=== PATIENT | female | born 1975 | race Caucasian/White ===

== ENCOUNTER 2017-05-05 10:53 | Emergency (ER) | payer MEDICAID ==
[2015-12-06 15:22] VITALS: BMI 26.4
[~2017-05-05 10:53] MED LIST: CALCIUM CA500 MG/51 PO; CENTRUM COMPLE1 EACH PO; FERROUS SULFAT325 MG PO; KLOR-CON 1010 MEQ PO; LOESTRIN PO; MAG-OX 400 MG400 MG PO; NORCO 10/325 TA1 TA1 PO; REQUIP1 MG PO; SPRINTEC1 TAB PO; TRAZODONE HCL50 MG PO; VALIUM5 MG PO; ZANTAC300 MG PO
[2017-05-05 11:19] LABS: BASOPHILS 0.5 % (0-2); EOSINOPHILS 1.4 % (0-7); HEMATOCRIT 41.8 % (36.0-48.0); HEMOGLOBIN 13.8 g/dL (12-16); LYMPHOCYTES 46.2 % (15-50); MCH 30.1 pg (26.0-34.0); MCV 91.1 fL (80.0-100.0); MEAN PLATELET VOLUME 10.3 fL (7.4-10.4); NEUTROPHILS 41.9 % (40-80); PLATELET COUNT 221 10x3/uL (130-400); RBC 4.59 10x6/uL (4.00-5.40); RDW 14.2 % (11.5-14.5); WBC 3.7 10x3/uL (4.8-10.8)
[2017-05-05 11:35] LABS: ALBUMIN 3.7 g/dL (3.4-5.0); ANION GAP 11.7 mmol/L (8-16); BILIRUBIN - TOTAL 0.7 mg/dL (0.2-1.3); CARBON DIOXIDE 27.3 mmol/L (21.0-32.0); CREATININE - SERUM 0.9 mg/dL (0.6-1.3); PROTEIN - SERUM 7.6 g/dL (6.4-8.2)
[2017-05-05 12:04] LABS: APPEARANCE CLEAR (CLEAR); BILIRUBIN NEGATIVE (NEGATIVE); COLOR YELLOW (YELLOW); GLUCOSE NEGATIVE (NEGATIVE); KETONE NEGATIVE (NEGATIVE); LEUKOCYTE ESTERASE NEGATIVE (NEGATIVE); NITRITE NEGATIVE (NEGATIVE); PROTEIN NEGATIVE (NEGATIVE); UROBILINOGEN NORMAL (NORMAL)
== END 2017-05-05 14:28 | disposition home or self-care (01) ==
LOC: D.ER 10:53
PROVIDERS: Emergency Medicine
DX: R10.11 Right upper quadrant pain (principal); R11.2 Nausea with vomiting, unspecified

== ENCOUNTER 2017-05-07 09:10 | Inpatient (IN) | payer MEDICAID ==
[~2017-05-07] VITALS: Ht 185.4 cm; Wt 82.3 kg
--- NOTE | ~2017-05-07 | OP ---
PATIENT NAME: CISCO LEWIS MEDICAL RECORD: [id number] :75 LOCATION:[id number] ADMISSION DATE:05/07/17 SURGEON: MIKEY ROSALES MD DATE OF OPERATION: 05/07/2017 PREOPERATIVE DIAGNOSES: 1. Biliary dyskinesia. 2. Odynophagia. 3. Epigastric and right upper quadrant abdominal pain. POSTOPERATIVE DIAGNOSES: 1. Biliary dyskinesia. 2. Odynophagia. 3. Epigastric and right upper quadrant abdominal pain. 4. 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 5. Hepatomegaly. PROCEDURES: 1. Laparoscopic cholecystectomy. 2. Intraoperative cholangiography without immediate surgeon interpretation. 3. An 18-gauge core needle liver biopsies. 4. Esophagogastroduodenoscopy with antral biopsies and esophageal biopsies. 5. The other procedures should be accessed and deflation of the lap band device. The risks, possible complications and alternatives to procedure were explained to the patient. She elects to proceed. The patient has been to 2 Emergency Rooms in last week. She was in the Emergency Room here at [place] and she was in the Emergency Room at [facility], she underwent an abdominal ultrasound which revealed no gallstones, no gallbladder wall thickening and no evidence of acute cholecystitis. CT scan was relatively normal as well. Her , who is a friend of mine and works with me stated that they were desperate for help and that she was in significant pain. The patient was having odynophagia. I was somewhat concerned that it may have been a band erosion or herniation of the stomach up through the band. A plane KUB revealed adequate placement of the band with just the right amount of tilt. There was a question of perhaps some flippage of the port. A PIPIDA scan with ejection fraction revealed an ejection fraction that was markedly low and the patient had exact reproduction of her symptoms with Ensure ingestion. Therefore, she underwent an operation urgently on 05/07/2017. General anesthesia was induced by the anesthesia staff. The abdomen was sterilely prepped and draped. A small skin lawanda was accomplished in the left upper quadrant. A Veress needle was inserted through the skin lawanda into the peritoneal cavity. CO2 insufflation was begun. Once a sufficient pneumoperitoneum had been achieved, a 12-mm trocar was inserted through an incision at the umbilicus. An abdominal survey was undertaken. The liver was somewhat enlarged. The indication for the liver biopsy was hepatomegaly. There was paucity of adhesions noted under the left lateral segment of the liver. OPERATIVE REPORT [id number] CISCO LEWIS The attention was first turned to the liver biopsy. Under laparoscopic guidance, I percutaneously accessed the right upper quadrant utilizing an 18-gauge core needle liver biopsy device. Cores were obtained over the convexity of the liver. The biopsy site was made hemostatic with electrocautery. The gallbladder was then grasped. I advanced the cholangiogram trocar. I punctured the fundus of the gallbladder. I aspirated bile. I then injected dye. A real time cholangiogram was performed. It looks relatively normal to me and is going to be reviewed by the radiologist for the final interpretation. I aspirated bile and removed the cholangiogram trocar. The gallbladder was grasped and retracted cephalad. The infundibulum was grasped and retracted laterally. Blunt dissection was begun on the triangle of Calot. One cystic artery and one cystic duct were identified. These were clipped multiply and divided between clips. The gallbladder was then placed within a bag retrieval device and was withdrawn through the umbilical fascia defect. The 12-mm trocar was replaced and the abdomen reinsufflated. I irrigated and aspirated in the right upper quadrant. There was no bleeding even at low pressure of 8. Angella was added to the gallbladder fossa for additional hemostasis. I took a set of lap graspers and elevated the left lateral segment of the liver. There was minimal scarring around a lap band device, which appeared to be intact and did not appear to have eroded into the esophagus. There was no evidence of infection. I examined the visualized portions of the tubing and it appeared normal as well. I then went about esophagogastroduodenoscopy. A bite block was inserted. A gastroscope was inserted into the mouth. It was advanced easily into the hypopharynx. The esophagus was easily intubated as were the stomach and duodenum. I was able to see the portion of the stomach that was cephalad to the lap band device. Anyhow, I then pulled back and I could see where the pinched point was and that is where the band was inflated. There was no evidence of perforation or erosion. I advanced into the stomach and duodenum again. I withdrew. No evidence of bleeding, no evidence of polyps. Antral biopsies were obtained to check for Helicobacter pylori. I then withdrew into the distal esophagus. There was a patch, it was about 1.8 cm in length that appeared to contain Ambrocio esophagus without ulceration. A biopsy was obtained. The endoscope was then withdrawn under direct vision. I then rescrubbed. I was able to flip the port easily. I was able to access the port easily. I withdrew all of the saline that was within the port and there was a total of 4.0 cc. I told the patient she can follow up with Dr. Riley in the future for pain and fills. The Antonio-Thomas suture closure device and 0 Vicryl sutures were used to close the fascia at the umbilicus. All the trocars were removed and the abdomen desufflated. The other skin incisions of the trocar sites were closed with interrupted 3-0 Vicryls. Marcaine was infiltrated around the incisions for postoperative analgesia. At no time was there any apparent injury to the lap band tubing or the lap band port. Sterile dressings were applied. The patient was then extubated and conveyed to the post-anesthesia care unit where she was in stable condition. Due to the late hour, we are going to keep OPERATIVE REPORT [id number] CISCO LEWIS overnight and she can be dismissed home tomorrow on a narcotic analgesic. She can follow up with Dr. Riley in the future for lap band fills. TRANSINT:[id number] Voice Confirmation ID: [id number] DOCUMENT ID: [id number] MIKEY ROSALES MD CC: NIKA GURROLA MD and ENRRIQUE RILEY JR [id number] DICTATION DATE: 05/08/17 1436 LIVESTOCK TRUCKER: 05/09/17 0043 DIS IN 05/08/17 [facility] [address] [place] [address]
--- NOTE | ~2017-05-07 | HP ---
PATIENT: CISCO LEWIS MEDICAL RECORD: [id number] ACCOUNT: [id number] LOCATION:D.[facility] : 75 ADMISSION DATE: 05/07/17 HISTORY AND PHYSICAL EXAMINATION CHIEF COMPLAINT: Pain. HISTORY OF PRESENT ILLNESS: The patient has been having abdominal pain. It is worse when she swallows. It seems to be affected by food. It is a crampy type of pain. It is band-like. It is worsening. She has been to 2 Emergency Rooms in the past week. She has undergone a CT scan which was nonrevealing as well as an abdominal ultrasound which was nonrevealing. I believe that she likely has some gallbladder symptoms too. She has a lap band. She was to keep the lap band. Her is more in favor of her having the lap band removed. She underwent a PIPIDA scan with ejection fraction and she had exact reproduction of her symptoms with ingestion of Ensure. I have personally discussed this with the radiologist. I have personally reviewed the PIPIDA scan images. The plan is going to be to perform a laparoscopic cholecystectomy, intraoperative cholangiogram, and possible liver biopsy. I am going to also look at the lap band laparoscopically. I will perform an EGD as well. If there is no evidence of lap band erosion into the esophagus or herniation of the stomach up through the lap band, then I will deflate the lap band and we will keep it in place and not remove it. I have discussed this at great length with the patient and her and they both agree. PAST MEDICAL AND SURGICAL HISTORY: History of cervical cancer, hyperthyroidism, history of neck fusion, history of , bilateral tubal ligation, cervical conization LEEP procedure, lap band. She is susceptible to postoperative nausea and vomiting, endometrial ablation and anemia. REVIEW OF SYSTEMS: Negative for coronary artery disease or hypertension. Negative for CVA or seizures. Negative for angina or [place]. No fever. Positive for nausea. ALLERGIES: DILAUDID WELL AMPICILLIN. HOME MEDICINES: CARAFATE, PROTONIX. PHYSICAL EXAMINATION: GENERAL: She does appear acutely ill. She does not appear chronically ill. VITAL SIGNS: Reviewed. HEAD: External ears appear normal. EYES: Extraocular movements are intact. NECK: Trachea is midline. CHEST: No intercostal retractions. PULMONARY: Nonlabored, no stridor. ABDOMEN: Nontender. No peritonitis. EXTREMITIES: No peripheral cyanosis. INTEGUMENT: No rash, no ulcerations. BACK: No thoracic kyphosis. LYMPHATICS: No lymphangitic streaking of the exposed extremities. PSYCHIATRIC: She is anxious. IMPRESSION: HISTORY AND PHYSICAL [id number] CISCO LEWIS 1. Biliary dyskinesia. 2. Possible lap band erosion. 3. Abdominal pain. PLAN: As described above. TRANSINT:[id number] Voice Confirmation ID: [id number] DOCUMENT ID: [id number] MIKEY ROSALES MD CC: [id number] DICTATION DATE: 05/07/171947 PROP CUTTER: 05/07/172141 ADM IN [facility] [address] [place] [id number]
[2017-05-07 11:24] LABS: MAGNESIUM - SERUM 1.9 mg/dL (1.8-2.4); PHOSPHOROUS 3.6 mg/dL (2.5-4.9); PRE-ALBUMIN 18.7 mg/dL (18.0-35.7)
[2017-05-07 12:11] VITALS: BP 91/53
[2017-05-07 14:44] VITALS: BP 98/62; Ht 185.4 cm; Wt 82.3 kg
[2017-05-07 15:56] LABS: BASOPHILS 0.4 % (0-2); EOSINOPHILS 1.1 % (0-7); HEMATOCRIT 44.6 % (36.0-48.0); HEMOGLOBIN 14.9 g/dL (12-16); IMMATURE GRANULOCYTES 0.2 % (0-5); MCH 29.9 pg (26.0-34.0); MCHC 33.4 g/dL (31.0-37.0); MCV 89.6 fL (80.0-100.0); MEAN PLATELET VOLUME 10.7 fL (7.4-10.4); MONOCYTES 8.5 % (2-11); NEUTROPHILS 53.8 % (40-80); PLATELET COUNT 208 10x3/uL (130-400); RBC 4.98 10x6/uL (4.00-5.40); RDW 13.8 % (11.5-14.5); WBC 5.3 10x3/uL (4.8-10.8)
[2017-05-07 16:03] LABS: CREATININE - SERUM 0.9 mg/dL (0.6-1.3)
[2017-05-07 16:04] LABS: CALCIUM 9.7 mg/dL (8.5-10.1); CARBON DIOXIDE 26.7 mmol/L (21.0-32.0); POTASSIUM - SERUM 3.7 mmol/L (3.5-5.1)
[2017-05-07 16:07] VITALS: BP 110/68
--- NOTE | 2017-05-07 16:32 | NUR ---
PATIENT TRANSFERRED VIA BED TO RADIOLOGY FOR A PIPIDA SCAN.
--- NOTE | 2017-05-07 18:07 | NUR ---
PATIENT RETURNED TO ROOM 2233 VIA BED FROM HER PIPIDA SCAN.
[2017-05-07 20:00] VITALS: BP 101/71
--- NOTE | 2017-05-07 21:37 | NUR ---
PREOP MEDS GIVEN AND CONSENTS SIGNED, PT TAKEN TO SURGERY VIA BED BY OR STAFF
--- NOTE | 2017-05-07 22:50 | NUR ---
RETURNED FROM SURGERY, VSS STABLE, NO DISTRESS NOTED, BANDAIDS TO LAP SITE, WILL IMPLEMENT ORDERS, AT BEDSIDE, SR'S UP X2, CL IN REACH, WILL MONITOR
--- NOTE | 2017-05-08 00:15 | NUR ---
PT RETURNED FROM [facility], 5 LAP SITES, NO DISTRESS NOTED, AROUSES EASILY, WILL IMPLEMENT ORDERS, AT BEDSIDE, SR'S UP, CL IN REACH
--- NOTE | 2017-05-08 00:30 | NUR ---
IV TO R WRIST INFILTRATED, DC'D WITH CATH INTACT, 20 PLACED IN R FOREARM BY LULY ZAYAS LPN, PT TOLERATED WELL, SR'S UP, CL IN REACH
--- NOTE | 2017-05-08 07:30 | NUR ---
AWAKE AND ALERT AT THIS TIME. ASSESSMENT PERFORMED PER FLOWSHEET. HOT DIPPER IN USE FOR PAIN CONTROL. PT IS PASSING FLATUS AND VOIDING WITHOUT DIFFICULTY. PROVIDED PT WITH INCENTIVE SPIROMETER AND SHE DEMONSTRATED PROPER USE WITH 1,500 ML OF INSPIRATORY VOLUME. DENIES FURTHER NEEDS AT THIS TIME. CALL LIGHT IN REACH, WILL CONTINUE WITH PLAN OF CARE.
[2017-05-08 09:14] VITALS: BP 111/77
--- NOTE | 2017-05-08 09:41 | NUR ---
AT BEDSIDE. PRN DILAUDID 2MG ADMINISTERED FOR PAIN 05/15 INCISIONALLY. IV D/C AND TRUMPET PLAYER D/C. PROVIDED PT WITH NON SKID SOCKS SO THAT SHE COULD AMBULATE WITH HUSBANDS ASSISTANCE. DENIES FURTHER NEEDS AT THIS TIME. TO D/C HOME LATER TODAY.
[2017-05-08] MEDS ORDERED: DILAUDID2 MG PO (10:39)
--- NOTE | 2017-05-08 11:00 | NUR ---
AMBULATING IN HALLWAY AT THIS TIME WITH . DENIES NEEDS AT THIS TIME. WILL CONTINUE WITH PLAN OF CARE.
--- NOTE | 2017-05-08 12:35 | NUR ---
PT WHEELED DOWNSTAIRS TO D/C HOME WITH . IV TO RIGHT FOREARM D/C WITH CATH TIP INTACT. WILL CONTINUE WITH PLAN OF CARE.
== END 2017-05-08 12:35 | disposition home or self-care (01) | DRG 419 ==
LOC: D.MS 09:10
PROVIDERS: Anesthesiology; ADMIT Surgery
PROC: 0FB03ZX Excision of Liver, Percutaneous Approach, Diagnostic (ICD-10-PCS; 2017-05-07)
PROC: BF121ZZ Fluoroscopy of Gallbladder using Low Osmolar Contrast (ICD-10-PCS; 2017-05-07)
PROC: 0DB58ZX Excision of Esophagus, Via Natural or Artificial Opening Endoscopic, Diagnostic (ICD-10-PCS; principal; 2017-05-07 15:15)
PROC: 0FT44ZZ Resection of Gallbladder, Percutaneous Endoscopic Approach (ICD-10-PCS; 2017-05-07 15:15)
PROC: 0DB68ZX Excision of Stomach, Via Natural or Artificial Opening Endoscopic, Diagnostic (ICD-10-PCS; 2017-05-07 15:15)
DX: K82.8 Other specified diseases of gallbladder (principal); R13.10 Dysphagia, unspecified; R16.0 Hepatomegaly, not elsewhere classified

== ENCOUNTER 2018-09-29 17:34 | Observation (INO) | payer MEDICAID ==
[~2018-09-29] VITALS: Ht 185.4 cm; Wt 77.1 kg
--- NOTE | ~2018-09-29 | DS ---
PATIENT:CISCO LEWIS :75 MEDICAL RECORD: [id number] DISCHARGE SUMMARY ADMISSION DATE: 09/29/18 DISCHARGE DATE: 10/02/18 PRINCIPAL DIAGNOSES: 1. Intractable abdominal pain. 2. Nausea and vomiting. 3. Swelling at the site of a gastric band. 4. Hyperthyroidism. HOSPITAL COURSE: The patient was admitted through the Emergency Room. She was started on steroids. The fluid in the lap band was evacuated. She had an improvement in her symptoms. Her left upper quadrant pain decreased, but was still present at the time of dismissal. She is being dismissed home on [place] as well as [facility]. She is going to be following up with Dr. Nguyen for lap band removal sometime after the first of the year. TRANSINT:[id number] Voice Confirmation ID: [id number] DOCUMENT ID: [id number] MIKEY ROSALES MD at 1653 CC: [id number] DICTATION DATE: 10/02/18 1446 BOILERMAKER WELDER: 10/03/18 0508 DIS IN 10/02/18 [facility] [address] [place] [address]
[~2018-09-29 17:34] MED LIST changes: +DILAUDID2 MG PO
[2018-09-29 18:05] LABS: BASOPHILS 0.3 % (0-2); EOSINOPHILS 1.1 % (0-7); HEMATOCRIT 41.2 % (36.0-48.0); IMMATURE GRANULOCYTES 0.2 % (0-5); LYMPHOCYTES 39.7 % (15-50); MCH 31.1 pg (26.0-34.0); MCV 91.6 fL (80.0-100.0); MEAN PLATELET VOLUME 10.1 fL (7.4-10.4); MONOCYTES 7.9 % (2-11); NEUTROPHILS 50.8 % (40-80); PLATELET COUNT 172 10x3/uL (130-400); RDW 13.9 % (11.5-14.5); WBC 6.1 10x3/uL (4.8-10.8)
[2018-09-29 18:17] LABS: ALBUMIN 3.7 g/dL (3.4-5.0); ALKALINE PHOSPHATASE 43 U/L (46-116); ALT (SGPT) 16 U/L (10-68); BILIRUBIN - TOTAL 0.38 mg/dL (0.2-1.3); CALC OSMOLALITY 278 mosm/kg (275-300); CARBON DIOXIDE 27.4 mmol/L (21.0-32.0); CHLORIDE - SERUM 104 mmol/L (98-107); CREATININE - SERUM 0.8 mg/dL (0.6-1.3); GLUCOSE 96 mg/dL (74-106); POTASSIUM - SERUM 4.3 mmol/L (3.5-5.1); PROTEIN - SERUM 7.6 g/dL (6.4-8.2); SODIUM 139 mmol/L (136-145); UREA NITROGEN 16 mg/dL (7-18); eGFR NON AFRICAN AMERICAN 83 mL/min (90-120)
[2018-09-29 18:20] LABS: AMYLASE - SERUM 61 U/L (25-115); LIPASE 218 U/L (73-393); TROPONIN-I < 0.017 ng/mL (0.000-0.060)
[2018-09-29 19:35] LABS: APPEARANCE CLEAR (CLEAR); BILIRUBIN NEGATIVE (NEGATIVE); COLOR YELLOW (YELLOW); GLUCOSE NEGATIVE (NEGATIVE); KETONE NEGATIVE (NEGATIVE); NITRITE NEGATIVE (NEGATIVE); PROTEIN NEGATIVE (NEGATIVE); SPECIFIC GRAVITY 1.015 (1.005-1.020); UROBILINOGEN NORMAL (NORMAL)
[2018-09-29 23:03] LABS: CKMB 0.2 U/L (0.0-3.6); CREATINE KINASE 59 UL (21-215)
[2018-09-29 23:04] LABS: TROPONIN-I < 0.017 ng/mL (0.000-0.060)
[2018-09-29 23:44] VITALS: BP 106/56; BMI 22.4
[2018-09-30 05:23] LABS: BASOPHILS 0.3 % (0-2); EOSINOPHILS 1.4 % (0-7); HEMATOCRIT 39.3 % (36.0-48.0); HEMOGLOBIN 13.1 g/dL (12-16); IMMATURE GRANULOCYTES 0.2 % (0-5); LYMPHOCYTES 35.9 % (15-50); MCH 30.6 pg (26.0-34.0); MCHC 33.3 g/dL (31.0-37.0); MCV 91.8 fL (80.0-100.0); NEUTROPHILS 53.2 % (40-80); PLATELET COUNT 164 10x3/uL (130-400); RBC 4.28 10x6/uL (4.00-5.40); RDW 13.9 % (11.5-14.5); WBC 5.8 10x3/uL (4.8-10.8)
[2018-09-30 06:05] LABS: ALBUMIN 3.3 g/dL (3.4-5.0); ALKALINE PHOSPHATASE 38 U/L (46-116); BILIRUBIN - TOTAL 0.55 mg/dL (0.2-1.3); CALCIUM 8.4 mg/dL (8.5-10.1); CARBON DIOXIDE 23.9 mmol/L (21.0-32.0); CHLORIDE - SERUM 106 mmol/L (98-107); CKMB 0.2 U/L (0.0-3.6); CREATINE KINASE 52 UL (21-215); CREATININE - SERUM 0.7 mg/dL (0.6-1.3); GLUCOSE 99 mg/dL (74-106); POTASSIUM - SERUM 3.7 mmol/L (3.5-5.1); PROTEIN - SERUM 6.4 g/dL (6.4-8.2); SODIUM 139 mmol/L (136-145); eGFR NON AFRICAN AMERICAN > 90 mL/min (90-120)
[2018-09-30 06:06] LABS: ALT (SGPT) 28 U/L (10-68); CALC OSMOLALITY 276 mosm/kg (275-300); TROPONIN-I < 0.017 ng/mL (0.000-0.060); UREA NITROGEN 9 mg/dL (7-18)
[2018-09-30 06:37] VITALS: BP 94/50
[2018-09-30 07:56] VITALS: BP 93/62
[2018-09-30 10:59] LABS: CKMB 0.2 U/L (0.0-3.6); CREATINE KINASE 55 UL (21-215); TROPONIN-I < 0.017 ng/mL (0.000-0.060)
[2018-09-30 11:56] VITALS: BP 101/71
[2018-09-30 13:28] VITALS: BMI 22.4
[2018-09-30 14:43] VITALS: Ht 185.4 cm; Wt 77.1 kg
[2018-09-30 17:17] VITALS: BP 115/69
[2018-09-30 22:08] VITALS: BP 101/53
[2018-10-01 06:11] VITALS: BP 112/64
[2018-10-01 10:04] VITALS: BP 107/65
[2018-10-01 16:05] LABS: AMYLASE - SERUM 38 U/L (25-115); LIPASE 113 U/L (73-393)
[2018-10-01 16:22] VITALS: BP 105/60
[2018-10-01 20:30] VITALS: BP 106/57
[2018-10-02 00:30] VITALS: BP 98/48
[2018-10-02 04:30] VITALS: BP 106/52
[2018-10-02 09:15] VITALS: BP 111/54
[2018-10-02 13:00] VITALS: BP 118/64
[2018-10-02] MEDS ORDERED: HYDROCODON-ACE1 EAC7 PO (15:14)
[2018-10-02] MEDS ORDERED: ZOFRAN ODT4 MG/UDTAB PO (15:15)
== END 2018-10-02 16:19 | disposition home or self-care (01) ==
LOC: D.ER 17:34 → D.MS 22:06 → D.EDHOLD 22:06 → D.MS 23:03 → OBSVTIME 23:30 → D.MS 10-02 16:19
PROVIDERS: Family Medicine; Surgery
DX: K95.09 Other complications of gastric band procedure (principal); Y84.8 Other medical procedures as the cause of abnormal reaction of the patient, or of later complication, without mention of misadventure at the time of the procedure; R11.2 Nausea with vomiting, unspecified; F17.210 Nicotine dependence, cigarettes, uncomplicated; F41.9 Anxiety disorder, unspecified; E05.90 Thyrotoxicosis, unspecified without thyrotoxic crisis or storm

== ENCOUNTER 2021-04-08 10:20 | Emergency (ER) | payer BC ==
[~2021-04-08] VITALS: Ht 185.4 cm; Wt 88.6 kg
[~2021-04-08 10:20] MED LIST changes: +HYDROCODON-ACE1 EAC7 PO; +ZOFRAN ODT4 MG/UDTAB PO
[2021-04-08 10:26] VITALS: BP 120/74; Ht 185.4 cm; Wt 88.6 kg
[2021-04-08 11:12] LABS: BASOPHILS 0.9 % (0-2); EOSINOPHILS 1.7 % (0-7); HEMATOCRIT 40.3 % (36.0-48.0); HEMOGLOBIN 13.3 g/dL (12-16); LYMPHOCYTES 30.5 % (15-50); MCH 30.1 pg (26.0-34.0); MCHC 33.1 g/dL (31.0-37.0); MCV 91.1 fL (80.0-100.0); MEAN PLATELET VOLUME 7.4 fL (7.4-10.4); MONOCYTES 11.4 % (2-11); NEUTROPHILS 55.5 % (40-80); RBC 4.43 10x6/uL (4.00-5.40); RDW 14.3 % (11.5-14.5); WBC 4.3 10x3/uL (4.8-10.8)
[2021-04-08 11:25] LABS: PLATELET COUNT 235 10x3/uL (130-400)
[2021-04-08 11:34] LABS: ANION GAP 8.7 mmol/L (8-16); CALCIUM 8.5 mg/dL (8.5-10.1); CARBON DIOXIDE 28.1 mmol/L (21.0-32.0); CREATININE - SERUM 0.9 mg/dL (0.6-1.3); POTASSIUM - SERUM 3.8 mmol/L (3.5-5.1)
[2021-04-08 11:40] LABS: ALBUMIN 3.5 g/dL (3.4-5.0); BILIRUBIN - TOTAL 0.53 mg/dL (0.2-1.3); PROTEIN - SERUM 6.8 g/dL (6.4-8.2)
== END 2021-04-08 13:04 | disposition home or self-care (01) ==
LOC: D.ER 10:20
PROVIDERS: Emergency Medicine
DX: G43.909 Migraine, unspecified, not intractable, without status migrainosus (principal); E86.0 Dehydration; K62.5 Hemorrhage of anus and rectum; R10.84 Generalized abdominal pain; R53.1 Weakness; R25.2 Cramp and spasm